=== PATIENT | female | born 1985 | race Two or more races ===

== ENCOUNTER 2017-03-17 09:33 | Day surgery (SDC) | payer OTHER | END 2017-03-17 17:15 | disposition home or self-care (01) | LOC: CIR.AMB 09:33 | DX: O02.1 Missed abortion (principal) ==

== ENCOUNTER 2017-03-20 14:44 | Emergency (ER) | payer OTHER ==
[~2017-03-20] VITALS: Ht 154.9 cm; Wt 60.8 kg
== END 2017-03-21 11:19 | disposition home or self-care (01) ==
LOC: ER 14:44
DX: N93.8 Other specified abnormal uterine and vaginal bleeding (principal)

== ENCOUNTER 2018-10-24 13:44 | Outpatient (CLI) | payer OTHER | END 2018-10-24 15:00 | disposition home or self-care (01) | LOC: PRENATAL 13:44 | DX: O26.22 Pregnancy care for patient with recurrent pregnancy loss, second trimester (principal); O09.512 Supervision of elderly primigravida, second trimester; O35.3XX0 Maternal care for (suspected) damage to fetus from viral disease in mother, not applicable or unspecified ==

== ENCOUNTER → 2019-02-13 | Outpatient (CLI) | payer OTHER | END | disposition home or self-care (01) | LOC: PRENATAL 08:12 | DX: O26.843 Uterine size-date discrepancy, third trimester (principal); O34.211 Maternal care for low transverse scar from previous cesarean delivery; O36.8191 Decreased fetal movements, unspecified trimester, fetus 1 ==

== ENCOUNTER 2019-03-03 07:00 | Inpatient (IN) | payer OTHER ==
[~2019-03-03] VITALS: Ht 154.9 cm; Wt 2.7 kg
[2019-03-03] MEDS ORDERED: PRENATAL + DHA1 EAC1 PO (08:37)
== END 2019-03-11 13:13 | disposition home or self-care (01) | DRG 785 ==
LOC: OB/GYN 03-08 07:00 → O/R 03-08 09:30 → OB/GYN 03-08 15:19
PROVIDERS: ADMIT Obstetrics & Gynecology
PROC: 0UL70ZZ Occlusion of Bilateral Fallopian Tubes, Open Approach (ICD-10-PCS; 2019-03-08)
PROC: 10D00Z1 Extraction of Products of Conception, Low, Open Approach (ICD-10-PCS; 2019-03-08)
PROC: 10D00Z1 Extraction of Products of Conception, Low, Open Approach (ICD-10-PCS; principal; 2019-03-08 11:00)
DX: O82 Encounter for cesarean delivery without indication (principal); Z3A.39 39 weeks gestation of pregnancy; Z37.0 Single live birth; Z30.2 Encounter for sterilization